=== PATIENT | female | born 1975 | race Two or more races ===

== ENCOUNTER 2019-07-09 11:58 | Emergency (ER) | payer MEDICAID ==
[~2019-07-09] VITALS: Ht 165.1 cm; Wt 88.5 kg
[2019-07-09] MEDS ORDERED: LIDOCAINE 2%, 20ML INFIL ONE (12:30)
[2019-07-09] MEDS ORDERED: PHENOL MC ONE (12:30)
[2019-07-09] MEDS ORDERED: BUPIVACAINE/PF 0.5% ONE (12:35)
[2019-07-09] MEDS ORDERED: BUPIVACAINE/PF 0.25% INFIL ONE (13:00)
--- NOTE | 2019-07-09 14:23 | NUR ---
task RN note: dc orders received. pt reports itching to bilateral legs at time of discharge, pt attached to bp and spo2 monitors. no hives noted, however pt has redness to bilateral LE. pt denies swelling to throat, no difficulty breathing noted. JORDYN Palm and primary RN Natalya notified.
[2019-07-09] MEDS ORDERED: DIPHENHYDRAMINE 50 MG/ML, 1ML ONE (14:25)
[2019-07-09] MEDS ORDERED: DIPHENHYDRAMINE 50 MG/ML, 1ML IM ONE (14:30)
[2019-07-09 15:02] VITALS: BP 126/75
== END 2019-07-09 15:05 | disposition home or self-care (01) ==
LOC: ED 14:30
DX: L60.0 Ingrowing nail (principal); E11.9 Type 2 diabetes mellitus without complications
CPT/HCPCS: 11730; 11732; 99283

== ENCOUNTER → 2019-08-07 | Outpatient (CLI) | payer MEDICAID ==
[~2019-08-07] MED LIST: OMNIPAQUE 350 MG/ML, 100ML BOTTLE ONE
== END | disposition home or self-care (01) ==
LOC: RAD 16:07
PROVIDERS: ATTEND Family Medicine
DX: K57.90 Diverticulosis of intestine, part unspecified, without perforation or abscess without bleeding (principal); K86.2 Cyst of pancreas; J98.11 Atelectasis; Z90.49 Acquired absence of other specified parts of digestive tract
CPT/HCPCS: 74177; Q9967

== ENCOUNTER 2019-09-06 07:15 | Emergency (ER) | payer MEDICAID ==
[~2019-09-06] VITALS: Ht 165.1 cm; Wt 90.6 kg
--- NOTE | 2019-09-06 07:27 | NUR ---
PT WITH LIGHT VAGINAL BLEEDING SINCE 08/23/2019. LAST NORMAL MENSTRAL CYCLE WAS 11/2018. LIGHT BLEEDING EVERYDAY SINCE 08/23, LAST NIGHT ABD CRAMPING STARTED AND SHE STATES THAT IT FELT LIKE CONTRACTIONS. INTERMITANT CRAMPING PAIN CONTINUES THIS MORNING. "I CAN'T HANDLE THIS ANYMORE" PT HAS NOT TAKEN ANY OTC PAIN MEDICATIONS. HAS APPT WITH DR LAW ON 09/10
[2019-09-06] MEDS ORDERED: PANT20TA3 PO (07:34)
[2019-09-06] MEDS ORDERED: SUCR1TAB33 PO (07:34)
[2019-09-06] MEDS ORDERED: [UNRECOGNIZED DRUG - OTHER] (07:34)
[2019-09-06] MEDS ORDERED: METF500T17 PO (07:34)
[2019-09-06] MEDS ORDERED: HYDROmorphone 1 MG/ML, 1ML INJ IVPush PRN (08:00)
[2019-09-06] MEDS ORDERED: ONDANSETRON ODT 4 MG PO ONE (08:00)
[2019-09-06] MEDS ORDERED: SODIUM CHLORIDE FLUSH 10ML SYR IVF ONE (08:00)
[2019-09-06] MEDS ORDERED: ONDANSETRON ODT 4 MG ONE (08:07)
[2019-09-06] MEDS ORDERED: HYDROmorphone 1 MG/ML, 1ML INJ ONE (08:07)
--- NOTE | 2019-09-06 08:22 | NUR ---
PT AMBULATED TO THE BR W/ A STEADY GAIT. URINE COLLECTED AND SENT TO LAB. PIV STARTED, LABS DRAWN AND PT MEDICATED PER EMAR. PLACED ON 2L NC. PT STATES PAIN WENT FROM 8/10 TO 0/10. DARRIAN CHAVIRA IN ROOM FOR PELVIC EXAM.
--- NOTE | 2019-09-06 08:30 | NUR ---
PT REPORTS THAT SHE WILL CALL FATHER TO PICK HER UP AFTER RECEIVING PAIN MEDS.
[2019-09-06 08:35] LABS: BASOPHILS # (AUTO) 0.06 x10^3/uL (0-0.1); BASOPHILS % (AUTO) 1 % (0-1); EOSINOPHILS # (AUTO) 0.08 x10^3/uL (0-0.4); EOSINOPHILS % (AUTO) 1 % (1-7); LYMPHOCYTES # (AUTO) 2.73 x10^3/uL (1-3.4); LYMPHOCYTES % (AUTO) 29 % (22-44); MD NO; MEAN CORPUSCULAR HEMOGLOBIN 32.3 pg (27.0-34.8); MEAN CORPUSCULAR HGB CONC 34.3 g/dL (32.4-35.8); MEAN CORPUSCULAR VOLUME 94.2 fL (80-100); MEAN PLATELET VOLUME 7.9 fL (7.4-10.4); MONOCYTES # (AUTO) 0.48 x10^3/uL (0.2-0.8); MONOCYTES % (AUTO) 5 % (2-9); NEUTROPHILS # (AUTO) 6.22 x10^3/uL (1.8-6.8); NEUTROPHILS % (AUTO) 65 % (42-75); PLATELET COUNT 326 x10^3/uL (130-400); RED BLOOD COUNT 4.88 x10^6/uL (3.82-5.3); RED CELL DISTRIBUTION WIDTH 13.2 % (9.6-15.2)
[2019-09-06 08:39] LABS: ALBUMIN 3.8 g/dL (3.4-5.0); ANION GAP 5 mmol/L (5-15); CALCIUM 9.3 mg/dL (8.5-10.1); CHLORIDE 109 mmol/L (98-107)
[2019-09-06 08:45] LABS: ALANINE AMINOTRANSFERASE 31 U/L (12-78); ALKALINE PHOSPHATASE 81 U/L (45-117); BILIRUBIN,TOTAL 0.3 mg/dL (0.2-1.0); CREATININE 1.01 mg/dL (0.55-1.02); TOTAL PROTEIN 7.7 g/dL (6.4-8.2)
[2019-09-06 08:48] LABS: MICROSCOPIC INDICATED
--- NOTE | 2019-09-06 08:51 | NUR ---
PT TO US.
[2019-09-06 09:17] LABS: CLUE CELLS NONE SEEN (NONE SEEN); WET PREP WBCS MANY (FEW)
--- NOTE | 2019-09-06 09:32 | NUR ---
ALL TESTS RESULTED. PT IS UP FOR RECHECK AT THIS TIME.
[2019-09-06 09:34] LABS: CULTURE INDICATED? YES
[2019-09-06 09:40] VITALS: BP 95/51
[2019-09-06] MEDS ORDERED: CEFTRIAXONE 250 MG ONE (10:11)
[2019-09-06] MEDS ORDERED: LIDOCAINE-MPF 1%, 2ML ONE (10:11)
[2019-09-06] MEDS ORDERED: AZITHROMYCIN 250 MG TABLET ONE (10:11)
--- NOTE | 2019-09-06 10:23 | NUR ---
PT MEDICATED PER EMAR. PIV DC. PT STATES SHE WILL CALL FATHER FOR RIDE HOME.
--- NOTE | 2019-09-06 10:26 | NUR ---
Patient given discharge instructions and they have confirmed that they understand the instructions. Patient ambulatory with steady gait.
[2019-09-06] MEDS ORDERED: CEFTRIAXONE 250 MG IM ONE (10:30)
[2019-09-06] MEDS ORDERED: AZITHROMYCIN 500 MG TABLET PO ONE (10:30)
== END 2019-09-06 10:27 | disposition home or self-care (01) ==
LOC: ED 08:20
DX: A59.9 Trichomoniasis, unspecified (principal); E11.9 Type 2 diabetes mellitus without complications
CPT/HCPCS: 36415; 76830; 80053; 81001; 84703; 85025; 87086; 87210; 87491; 87591; 87808; 96372; 96374; 99285; J0696; J1170; Q0162